=== PATIENT | female | born 1990 | race Caucasian/White ===

== ENCOUNTER 2025-07-05 22:54 | Inpatient (IN) | payer OTHER, SELFPAY ==
[2025-07-06] MEDS ORDERED: Dextrose 50% Abboject 50 ML SYRINGE SLOW IVP PRN (00:13)
[2025-07-06] MEDS ORDERED: Methocarbamol 500 MG TAB PO PRN (00:13)
[2025-07-06] MEDS ORDERED: Acetaminophen 325 MG TAB PO PRN (00:13)
[2025-07-06] MEDS ORDERED: hydrALAZINE 20 MG/ML VIAL SLOW IVP PRN (00:13)
[2025-07-06] MEDS ORDERED: Glucagon 1 MG/ML KIT IM PRN (00:13)
[2025-07-06] MEDS ORDERED: Ondansetron PF 4 MG/2 ML Vial IVP PRN (00:13)
[2025-07-06 04:08] VITALS: BMI 26.6
[2025-07-06 04:58] LABS: #Basophils 0.04 10x3/uL (0.0-0.2); #Eosinophils 0.12 10x3/uL (0.0-0.7); #Monocytes 1.25 10x3/uL (0.11-0.59); #Neutrophils 12.79 10x3/uL (1.40-6.50); %Basophils 0.2 % (0.0-1.0); %Eosinophils 0.7 % (0.0-10.0); %Lymphocytes 11.7 % (21.0-51.0); %Monocytes 7.7 % (0.0-10.0); %Neutrophils 79.3 % (42.0-75.0); BHCG - Serum Negative (NEGATIVE); Hematocrit 35.6 % (36.0-47.0); Hemoglobin 11.3 g/dL (12.0-16.0); Mean Corpuscular Hemoglobin 29.4 pg (27.0-31.0); Mean Corpuscular Volume 92.7 fL (78.0-98.0); Platelet Count 270 10x3/uL (130-400); Pregs Control Background? CLEAR/WHITE (CLR/WHITE); Pregs Control Bar Appear? YES (CONTROL BAR); Red Blood Cell (RBC) Count 3.84 mill/uL (4.20-5.40); White Blood Cell (WBC) Count 16.16 10x3/uL (4.8-10.8)
[2025-07-06 05:05] LABS: ALT (SGPT) 18 U/L (Less than 34); AST (SGOT) 40 U/L (11-34); Albumin 3.6 g/dL (3.1-4.5); Alkaline Phosphatase 44 U/L (40-110); Anion Gap 13 mmol/L (10-20); BUN (Urea Nitrogen) 13 mg/dL (7.0-18.7); Bilirubin, Total 0.6 mg/dL (0.3-1.2); Calc. Creatinine Clearance 118 mL/min (70-130); Calcium 8.3 mg/dL (7.8-10.44); Carbon Dioxide 20 mmol/L (22-29); Chloride 106 mmol/L (98-107); Globulin 2.8 g/dL (2.4-3.5); Glucose 101 mg/dL (70-105); Potassium 3.6 mmol/L (3.5-5.1); Sodium 135 mmol/L (136-145)
[2025-07-06] MEDS: Rabies Vaccine Human 2.5 UNITS VIAL IM ONE (13:50)
[2025-07-06] MEDS ORDERED: CEFAZOLIN 2 GM VIAL ONE (14:53)
[2025-07-06] MEDS ORDERED: Lidocaine 1% PF 5 ML VIAL ONE (15:37)
[2025-07-06] MEDS ORDERED: Lidocaine 2% PF 100 mg/5 ml Syringe ONE (15:37)
[2025-07-06] MEDS ORDERED: fentaNYL PF 100 MCG/2 ML SYRINGE ONE (15:37)
[2025-07-06] MEDS ORDERED: PROPOFOL 200 MG/20 ML VIAL ONE (15:59)
[2025-07-06] MEDS ORDERED: Bacitracin Zinc Ointment 30 gm TUBE ONE (16:00)
[2025-07-06] MEDS ORDERED: Ondansetron PF 4 MG/2 ML Vial ONE (16:02)
[2025-07-06] MEDS ORDERED: HYDROmorphone 2 MG/ML VIAL ONE (16:07)
[2025-07-06] MEDS ORDERED: Metoprolol Tartrate 5 MG (5 mL) VIAL ONE (16:25)
[2025-07-06] MEDS: Senokot S 8.6-50 MG TAB PO SCH (17:50)
[2025-07-07 06:30] LABS: #Basophils Less than 0.03 10x3/uL (0.0-0.2); #Eosinophils Less than 0.03 10x3/uL (0.0-0.7); #Monocytes 0.74 10x3/uL (0.11-0.59); #Neutrophils 7.41 10x3/uL (1.40-6.50); %Basophils 0.1 % (0.0-1.0); %Eosinophils 0.1 % (0.0-10.0); %Lymphocytes 11.4 % (21.0-51.0); %Monocytes 8.0 % (0.0-10.0); %Neutrophils 80.1 % (42.0-75.0); Hematocrit 34.2 % (36.0-47.0); Hemoglobin 10.8 g/dL (12.0-16.0); Mean Corpuscular Hemoglobin 29.3 pg (27.0-31.0); Mean Corpuscular Volume 92.7 fL (78.0-98.0); Platelet Count 223 10x3/uL (130-400); Red Blood Cell (RBC) Count 3.69 mill/uL (4.20-5.40); White Blood Cell (WBC) Count 9.26 10x3/uL (4.8-10.8)
[2025-07-07 06:46] LABS: Anion Gap 12 mmol/L (10-20); BUN (Urea Nitrogen) 8 mg/dL (7.0-18.7); Calc. Creatinine Clearance 121 mL/min (70-130); Calcium 8.6 mg/dL (7.8-10.44); Carbon Dioxide 20 mmol/L (22-29); Chloride 107 mmol/L (98-107); Glucose 88 mg/dL (70-105); Potassium 3.4 mmol/L (3.5-5.1); Sodium 136 mmol/L (136-145)
[2025-07-07 08:07] VITALS: BP 132/77; TEMP 98.3
== END 2025-07-07 15:03 | disposition home or self-care (01) | DRG 572 ==
LOC: ERS 22:54 → ERHOLD 07-06 00:13 → SURG A 07-06 04:04
PROVIDERS: ADMIT Surgery Trauma Surgery; ATTEND Surgery Trauma Surgery
PROC: 3E03329 Introduction of Other Anti-infective into Peripheral Vein, Percutaneous Approach (ICD-10-PCS; principal; 2025-07-06)
PROC: 0JBD0ZZ Excision of Right Upper Arm Subcutaneous Tissue and Fascia, Open Approach (ICD-10-PCS; 2025-07-06)
PROC: 0JBF0ZZ Excision of Left Upper Arm Subcutaneous Tissue and Fascia, Open Approach (ICD-10-PCS; 2025-07-06)
PROC: 0JBN0ZZ Excision of Right Lower Leg Subcutaneous Tissue and Fascia, Open Approach (ICD-10-PCS; 2025-07-06)
DX: S51.812A Laceration without foreign body of left forearm, initial encounter (principal); S51.811A Laceration without foreign body of right forearm, initial encounter; S51.012A Laceration without foreign body of left elbow, initial encounter; S51.011A Laceration without foreign body of right elbow, initial encounter; F41.9 Anxiety disorder, unspecified; F31.9 Bipolar disorder, unspecified; F17.210 Nicotine dependence, cigarettes, uncomplicated; F12.10 Cannabis abuse, uncomplicated; F15.10 Other stimulant abuse, uncomplicated; W54.0XXA Bitten by dog, initial encounter; Z98.890 Other specified postprocedural states
CPT/HCPCS: 36415; 80048; 80053; 83036; 84703; 85025; 90471; 90675; 90715; G0390; J1100; J1171; J2003; J2250; J2272; J2405; J2543; J2704; J7120